=== PATIENT | female | born 1970 | race Caucasian/White ===

== ENCOUNTER 2018-06-20 03:14 | Inpatient (IN) ==
[2018-06-20] MEDS ORDERED: LORazepam 1 MG Tablet PO PRN (05:44)
--- NOTE | 2018-06-20 10:11 | P.HPPSY ---
Provisional Diagnosis Admission Date: June 20, 2018 05:10 [place] I.: 1. Unspecified psychosis Rule out primary psychotic illness Rule out mood disorder with psychotic features Rule out psychosis due to a general medical or neurological problem [place] II.: Deferred Competence Certification of Person's Competence To Provide Express and Informed Consent I have personally examined Arabella Dang, a person being served at [facility] on, June 20, 2018 1010. Express and informed consent means consent voluntarily given in writing, by a competent person, after sufficient explanation and disclosure of the subject matter involved to enable the person to make a knowing and willful decision without any element of force, fraud, deceit, duress, or other form of constraint or coercion. This person is 18 years of age or older, is not now known to be incompetent to consent to treatment with a guardian advocate, and does not have a health care surrogate or proxy currently making medical treatment decisions. I have found this person to be one of the following: [] Competent to provide express and informed consent, as defined above, for voluntary admission to this facility and is competent to provide express and informed consent for treatment. He/she has the consistent capacity to make well reasoned, willful, and knowing decisions concerning his or her medical or mental health treatment. The person fully and consistently understands the purpose of the admission for examination/placement and is fully capable of personally exercising all rights assured under [place] [X] Incompetent to provide express and informed consent to voluntary admission, and this is incompetent to provide express and informed consent to treatment. The person must be transferred to involuntary status and a petition for a guardian advocate filed with the Circuit Court. [] Refusing to provide express and informed consent to voluntary admission but is competent to provide express and informed consent for treatment. The person must be discharged or transferred to involuntary status. Form shall be completed within 24 hours of a person's arrival at the receiving facility and filed in the clinical record of each person: 1. Admitted on a voluntary basis 2. Permitted to provide express and informed consent to his/her own treatment 3. Allowed to transfer from involuntary to voluntary status 4. Prior to permitting a person to consent to his or her own treatment after having been previously found incompetent to consent to treatment. History of Present Illness Capacity: Lacks capacity Chief Complaint: Psychosis History of Present Illness: Ms. Dang is a 48-year-old female with no previously diagnosed psychiatric illness prior to the current episode who presents in transfer from [facility] under a Roach act. Reviewing documentation from outside hospital, it appears that the patient was brought into [facility] under an ex parte order initiated by her sister, Rosey. I have reviewed the text of this ex parte order , which alleges paranoia. Reviewing our electronic medical record, I see no previous psychiatric contact within our system. Patient seen and examined with nurse. Chart reviewed. Case discussed with nursing staff. On my exam, patient is seclusive to room. She is sarcastic and irritable. She is quite paranoid. She believes that people are monitoring our conversation and asks to speak in a more private setting, even though there is no one in the room but myself and the nurse. She denies AVH. Denies SI or HI saying "just the opposite. I am trying to stay alive." Affect is irritable and dysphoric. No reported depressive or hypomanic/manic symptoms. She rambles about recent treatment for UTI, pap smear and other medical tests. She reports that her feeling that she was being monitored started "a little over a year ago." No other delusional material. Remainder of the psychiatric ROS is negative. No acute physical complaints. Past psychiatric history: Patient is likely an unreliable historian. She says that she has seen a provider in the past at [facility]. Patient reports that she is prescribed Risperdal but does not take it. She reports that she has been psychiatrically hospitalized here in [place] but will not say where or when. She denies a history of suicide attempts or violence. Family history: The patient denies a history of serious mental illness or suicide. Chemical dependency history: The patient reports that she previously was a heavy drinker but has been sober for the last 2 years. Social history: The patient is originally from [place] but moved to [place] by way of [place]. She previously worked doing medical center manager. She is high school educated. She is and has 2 sons Hira and Kody. She also reports that she is presently in a partner relationship with a gentleman named Neville Whitten III. She denies any history. She does report a history of legal problems, namely failure to report an accident. No reported active legal issues. She denies any access to guns or firearms. She is a Anglican. No reported history of trauma. 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 Medications: Patient reports that she is nonadherent with psychotropic medications. She does take Prilosec, multivitamin and B12 supplement. Given the patient's degree of psychiatric impairment, I obtained collateral information from her sister, Rosey who completed the ex parte order at the number listed in her affidavit. Rosey reports that the patient has been experiencing increasing paranoia x 2 months with no known previous psychiatric history. Patient was visiting family in [place] and was found wandering. She was taken to a psychiatric hospital in [place] but was released by the marzipan maker. Since returning to [place], Rosey notes patient has grown increasingly paranoid. She believes that her phone is bugged and that people are listening to her on the TV. As noted above, the patient has no known previous psychiatric history. There is a family history of bipolar disorder and Rosey self as well as anxiety and the patient's father. Rosey does not believe that the patient is currently using drugs or alcohol and notes that she went to rehab for alcohol use issues 2 years ago. Rosey is willing to serve as health care surrogate. We discussed treatment plan including workup for first episode of psychosis. She will also get the name of the hospital where the patient was hospitalized in [place] so that we may obtain records. - Inpatient Certification I certify that the inpatient services were ordered in accordance with Medicare regulations governing the order. This includes certification that hospital inpatient services are reasonable and necessary and in the case of services not specified as inpatient-only under 42 CFR 419.22(n), that they are appropriately provided as inpatient services in accordance to with the 2-midnight benchmark under 43 CFR 412.3(e) I certify that inpatient psychiatric hospital services are medically necessary. Evaluation and treatment and/or diagnostic testing are expected to improve the patient's condition. The patient needs on a daily basis, active treatment furnished directly by or requiring the supervision of inpatient psychiatric facility personnel. Estimated Total Length of Stay (Days): 9 (7-9) Plans for Post Hospital Care: Not yet determined Review of Systems All other systems reviewed negative except as stated in HPI (Limitation: Psychosis) PMFSH - Travel History Recent Travel in the USA Within the Last 8 Weeks: No Recent Travel Out of the Country Within the Last 8 Weeks: No - Immunization History Tetanus Immunization: Unable to Assess Hx Influenza Vaccine This Season: Unable to Assess Quality Measures - Patient Strengths Patient's strengths (minimum of 2): In a monitored setting. Verbally fluent. Medications and Allergies Active Medications: Active Medications Acetaminophen (Tylenol) 650 mg PO Q4H PRN PRN Reason: PAIN 1-5 OR TEMP > 101 Al Hydrox/Mg Hydrox/Simethicone (Mag-Al Plus Susp Liq) 30 ml PO Q6H PRN PRN Reason: DYSPEPSIA Al Hydroxide/Mg Hydroxide (Milk Of Magnesia Liq) 30 ml PO Q24H PRN PRN Reason: CONSTIPATION Lorazepam (Ativan) 1 mg PO Q6H PRN PRN Reason: MODERATE TO SEVERE ANXIETY Lorazepam (Ativan Inj) 1 mg IM Q6H PRN PRN Reason: MODERATE TO SEVERE ANXIETY Nicotine (Habitrol 21 Mg Patch.24 Hr) 1 patch T-DERMAL DAILY LISY Patch Removal (Remove Old Patch) 1 each T-DERMAL HS LISY Risperidone (Risperdal) 1 mg PO BID LISY Allergies Allergy/AdvReac Type Severity Reaction Status Date / Time No Known Allergies Allergy Verified 06/20/18 05:16 Home Medications Medication Instructions Recorded Confirmed Type risperidone [Risperdal] 1 mg PO BID 06/20/18 06/20/18 History Results - Labs Labs: Labs from outside hospital reviewed: Tylenol level negative Alcohol level undetectable CMP reveals mild hyponatremia at 136. Renal and hepatic function are intact. Salicylate level undetectable. Urine drug screen negative. TSH 2.08. CBC reveals mild microcytic anemia with a hemoglobin of 10.2. White blood cell count and platelet count are within normal limits. Urinalysis reveals 6 white blood cells and large leukocyte esterase. Exam Vital signs: Vital Signs 06/20/18 05:26 Temperature 98 F Pulse Rate 76 Respiratory Rate 16 Blood Pressure 107/53 L Pulse Oximetry 97 Intake & Output 06/19/18 06/20/18 06/20/18 18:59 06:59 18:59 Weight 57.1 kg Other: Weight On Admission 57.1 kg Narrative: Physical exam completed by ED provider at outside hospital. On my examination today, the patient appears to be in no acute physical distress. No motor abnormalities noted. Labs and vital signs reviewed. Mental Status Examination Appearance: Disheveled Consciousness: Alert, Vigilant Orientation: Person, Place (At least) Motor Activity: Other (No motor abnormalities noted) Speech: Unremarkable Language: Adequate Fund of Knowledge: Adequate Attention and Concentration: Adequate Memory: Unremarkable (Grossly intact on clinical exam) Mood: Irritable, Other (Dysphoric) Affect: Irritable, Other (Restricted) Thought Process & Associations: Linear (Within delusions) Thought Content: Delusional Hallucination Type: None Delusion Type: Paranoid Suicidal Ideation: No Suicidal Plan: No Suicidal Intention: No Homicidal Ideation: No Homicidal Plan: No Homicidal Intention: No Insight: Poor Judgment: Poor Assessment and Plan - Assessment (1) Unspecified psychosis Code(s): F29 - Unspecified psychosis not due to a substance or known physiological condition Status: Acute - Plan Plan: 48-year-old female with psychiatric history as detailed above who presents in transfer from outside hospital under a Roach act. On my examination today, the patient remains quite paranoid and according to collateral information from the patient's sister has become increasingly paranoid over the last few months. Differential diagnosis would include later onset of a primary psychotic disorder disorder with psychotic features (although this seems less likely as there does not seem to be a significant mood component), or psychosis due to a general medical or neurological condition. I am concerned about the potential for significant self-care deficit as a consequence of the patient's psychosis. Patient requires psychiatric hospitalization at this time for safety, observation and stabilization. Admit inpatient. Involuntary status. I have completed first opinion. Consult for second opinion. Request healthcare surrogate and guardian advocate. Initiate first break psychosis workup: MRI brain and lab work including HIV, RPR , B12, thiamine/folate, TSH was wnl at outside hospital, ammonia, ESR, MAHNAZ. Check repeat UA and start patient on Macrobid as UA at outside hospital concerning for UTI. Obtain records from outside hospital. Hold off on initiating scheduled psychotropics pending initial workup and observation on the unit. Check EKG for QTc in anticipation that the patient will require an antipsychotic. Vitals every shift. Counselor to see. Disposition planning. Estimated length of stay: 7-9 days. Justification for Continued Inpatient Stay: See above Discharge Planning: Pending psychiatric stabilization. Request Healthcare Surrogate/Guardian Advocate?: Yes (1) Unspecified psychosis Qualifiers: Psychosis type: unspecified psychosis type Qualified Code(s): F29 - Unspecified psychosis not due to a substance or known physiological condition
--- NOTE | 2018-06-20 15:54 | P.CONPSY ---
Provisional Diagnosis Admission Date: June 20, 2018 05:10 [place] I.: 1. Unspecified psychosis Rule out primary psychotic illness Rule out mood disorder with psychotic features Rule out psychosis due to a general medical or neurological problem [place] II.: Deferred History of Present Illness Service: Psychiatry Consult date: 06/20/18 Requesting Physician: Yazan Olsen Reason for Consult: Second opinion Primary Care Provider: Debora Ivey History of Present Illness: Patient is a 48-year-old woman with an unclear past psychiatric history, was brought in under Roach act under expiratory due to increasing paranoia which patient had endorsed that her phone has been tapped and the patient listening to her television. Patient was found heavily on unit noted to be suspicious and guarded toward telegraphic typewriter operator and nurse. Patient states that she is here in the hospital because there was a well check that was sent for her from her sister and does not understand why she is here in the hospital. Patient states that she has been feeling depressed but denying any suicide ideations. Patient gives an unclear disorganized account of her past psychiatric history, and I was able to elaborate somewhat on her paranoid stating that her phone had been compromised as well as inside her vehicle that they are listening to her. When asked about whom she believes this interfering with her electronic devices set her vehicle she did not elaborate. Patient states that she does not recall having been seen by a psychiatrist this morning and did not recall having taking her antibiotics which was provided for her by the nurse earlier today. Patient noted to be somewhat disorganized. Review of Systems All other systems reviewed negative except as stated in HPI PMFSH - History History Provided By: Patient, Medical Record - Travel History Recent Travel in the USA Within the Last 8 Weeks: No Recent Travel Out of the Country Within the Last 8 Weeks: No - Immunization History Tetanus Immunization: Unable to Assess Hx Influenza Vaccine This Season: Unable to Assess Medications and Allergies Active Medications: Active Medications Acetaminophen (Tylenol) 650 mg PO Q4H PRN PRN Reason: PAIN 1-5 OR TEMP > 101 Al Hydrox/Mg Hydrox/Simethicone (Mag-Al Plus Susp Liq) 30 ml PO Q6H PRN PRN Reason: DYSPEPSIA Al Hydroxide/Mg Hydroxide (Milk Of Magnesia Liq) 30 ml PO Q24H PRN PRN Reason: CONSTIPATION Nicotine (Habitrol 21 Mg Patch.24 Hr) 1 patch T-DERMAL DAILY LISY Nitrofurantoin Macrocrystals (Macrobid) 100 mg PO BIDPC LISY Patch Removal (Remove Old Patch) 1 each T-DERMAL HS LISY Allergies Allergy/AdvReac Type Severity Reaction Status Date / Time No Known Allergies Allergy Verified 06/20/18 05:16 Home Medications Medication Instructions Recorded Confirmed Type risperidone [Risperdal] 1 mg PO BID 06/20/18 06/20/18 History Exam Vital signs: Vital Signs 06/20/18 05:26 Temperature 98 F Pulse Rate 76 Respiratory Rate 16 Blood Pressure 107/53 L Pulse Oximetry 97 Intake & Output 06/19/18 06/20/18 06/20/18 18:59 06:59 18:59 Weight 57.1 kg Other: Weight On Admission 57.1 kg - Constitutional no acute distress, cooperative (superficially) Mental Status Examination Appearance: Disheveled Consciousness: Alert, Vigilant Orientation: Person, Place (At least) Motor Activity: Other (No motor abnormalities noted) Speech: Unremarkable Language: Adequate Fund of Knowledge: Adequate Attention and Concentration: Adequate Memory: Unremarkable (Grossly intact on clinical exam) Mood: Irritable Affect: Irritable, Sad Thought Process & Associations: Linear (Within delusions), Tangential Thought Content: Delusional Hallucination Type: None Delusion Type: Paranoid Suicidal Ideation: No Suicidal Plan: No Suicidal Intention: No Homicidal Ideation: No Homicidal Plan: No Homicidal Intention: No Insight: Poor Judgment: Poor Assessment and Plan - Assessment (1) Unspecified psychosis Code(s): F29 - Unspecified psychosis not due to a substance or known physiological condition Status: Acute - Plan Plan: I have seen and examined this patient, reviewed the documentation, and I agree and concur with Dr. Olsen assessment and plan. I have completed second opinion for the petition for involuntary hospitalization. Consult appreciated. Justification for Continued Inpatient Stay: At risk for further decompensation if at lower level of care. Request Healthcare Surrogate/Guardian Advocate?: Yes (1) Unspecified psychosis Qualifiers: Psychosis type: unspecified psychosis type Qualified Code(s): F29 - Unspecified psychosis not due to a substance or known physiological condition
[2018-06-20] MEDS: Nitrofurantoin Monohydrate-Macrocrystal 100 MG Capsule PO SCH (17:50)
[2018-06-20] MEDS: Acetaminophen 325 MG Tablet PO PRN (21:50)
[2018-06-20 22:24] LABS: Bacteria,Urine Rare /hpf; Bilirubin,Urine Negative (Negative); Clarity,Urine Clear (Clear); Color,Urine Straw (Yellw/Straw); Glucose,Urine (UA) Negative (Negative); Leukocyte Esterase,Urine Trace (Negative); Nitrite,Urine Negative (Negative); Specific Gravity,Urine 1.003 (1.002-1.035)
[2018-06-21] MEDS: Nitrofurantoin Monohydrate-Macrocrystal 100 MG Capsule PO SCH ×2 (08:19→18:10)
[2018-06-21 08:23] LABS: Anion Gap 7 meq/L (5-15); Blood Urea Nitrogen 9 mg/dL (7-18); Calcium 8.4 mg/dL (8.5-10.1); Carbon Dioxide 28.4 meq/L (21.0-32.0); Chloride 109 meq/L (98-107); Cholesterol 146 mg/dL (120-200); Glomerular Filtration Rate Greater Than 89 mL/min (>89); Glucose,Random 86 mg/dL (74-106); Potassium 4.2 meq/L (3.5-5.1); Sodium 144 meq/L (136-145)
[2018-06-21 08:48] LABS: Chol/HDL Ratio 2.15 Ratio; HDL Cholesterol 67.7 mg/dL (40.0-60.0); LDL Cholesterol,Calculated 64 mg/dL (0-99); Triglycerides 70 mg/dL (42-150); Vitamin B12 1130 pg/mL (193-986)
--- NOTE | 2018-06-21 14:41 | P.PNPSY ---
Subjective Chief Complaint: Psychosis Remarks: Reviewed electronic medical records and discussed case with staff. Follow-up was conducted in patient's room with nurse present. Patient found lying in her bed. She reports that she is tired due to having trouble falling and staying asleep. She reports that her appetite's been good. She claims that she has had a gastric bypass is not receiving her multivitamins are look into that. Staff reports that she has been extremely paranoid and questions everything. I do note this upon her follow-up. She is suspicious of what is happening to her purse as well as his prescriptions very goal-directed towards this. Mental Status Examination Appearance: Disheveled Consciousness: Alert, Vigilant Orientation: Person, Place (At least) Motor Activity: Other (No motor abnormalities noted) Speech: Unremarkable Language: Adequate Fund of Knowledge: Adequate Attention and Concentration: Adequate Memory: Unremarkable (Grossly intact on clinical exam) Mood: Irritable Affect: Irritable, Sad Thought Process & Associations: Linear (Within delusions), Tangential Thought Content: Delusional Hallucination Type: None Delusion Type: Paranoid Suicidal Ideation: No Suicidal Plan: No Suicidal Intention: No Homicidal Ideation: No Homicidal Plan: No Homicidal Intention: No Insight: Poor Judgment: Poor Assessment and Plan - Plan Plan: Continue with current treatment plan. I have added a multivitamin and B12 due to the patient's reports of previous gastric bypass. Justification for Continued Inpatient Stay: Moving this patient to a less restrictive environment would likely result in decompensation. Patient remains suspicious and paranoid. Seclusive to room. Request Healthcare Surrogate/Guardian Advocate?: Yes
--- NOTE | 2018-06-21 15:43 | MR ---
EXAM DATE: 06/21/2018 3:37 PM EDT AGE/SEX: 48 years / Female INDICATIONS: . Psychosis. CLINICAL DATA: This is the patient's initial encounter. Patient reports that signs and symptoms have been present for 1 day and indicates a pain score of 0/10. MEDICAL/SURGICAL HISTORY: None. Tubal ligation. Tonsillectomy. Gastric bypass. COMPARISON: No prior exams available for comparison. TECHNIQUE: Multiplanar, multisequence examination of the brain was performed without contrast. FINDINGS: MRI of the brain is performed in sagittal, axial and coronal planes. The craniocervical junction and midline structures are unremarkable. Diffusion weighted images demonstrate no abnormality. No acute c ortical infarction, acute hemorrhage, mass effect or midline shift is seen. Posterior fossa structure s are unremarkable. CONCLUSION: No evidence of acute intracranial pathology. No masses are identified. Electronically signed by: Yazan Persaud MD 06/21/2018 3:42 PM EDT
[2018-06-21 15:50] LABS: Hemoglobin A1c 5.7 % (4.3-6.0)
--- NOTE | 2018-06-21 16:21 | ECG ---
Date Performed: 06/21/2018 Time Performed: 11:11:16 PTAGE: 48 years EKG: Sinus rhythm NORMAL ECG NO PREVIOUS TRACING DOCTOR: Yazan Gilmore Interpretating Date/Time 06/21/2018 16:17:55
[2018-06-22] MEDS: Nitrofurantoin Monohydrate-Macrocrystal 100 MG Capsule PO SCH ×2 (08:15→17:09)
[2018-06-22 15:33] LABS: Anti-Nuclear Antibody Screen Neg (Neg)
--- NOTE | 2018-06-22 16:43 | P.PNPSY ---
Subjective Chief Complaint: Psychosis Remarks: Reviewed electronic medical records and discussed case with staff. Follow-up was conducted in the hallway. Patient continues to be extremely paranoid and irritable. Staff reports that she has been fault finding. Patient was assigned a surrogate and court on and I have reached out to her and obtained consent via phone to reestablish the patient on her risperidone. I have ordered 1 mg twice a day. She does admit that she took this when living in [place] reports she has been off of it for approximately a month now. When asked why she stopped she reported "because I left [place]". Patient is extremely demanding stating that the healthcare surrogate, she wants to know the name and phone number of the tool checker, she wants this provider's name and phone number. Mental Status Examination Appearance: Disheveled Consciousness: Alert, Vigilant Orientation: Person, Place (At least) Motor Activity: Other (No motor abnormalities noted) Speech: Unremarkable Language: Adequate Fund of Knowledge: Adequate Attention and Concentration: Adequate Memory: Unremarkable (Grossly intact on clinical exam) Mood: Irritable Affect: Irritable, Sad Thought Process & Associations: Linear (Within delusions), Tangential Thought Content: Delusional Hallucination Type: None Delusion Type: Paranoid Suicidal Ideation: No Suicidal Plan: No Suicidal Intention: No Homicidal Ideation: No Homicidal Plan: No Homicidal Intention: No Insight: Poor Judgment: Poor Assessment and Plan - Assessment (1) Unspecified psychosis Code(s): F29 - Unspecified psychosis not due to a substance or known physiological condition Status: Acute - Plan Plan: Continue with current treatment plan as ordered. I have added risperidone 1 mg twice a day which is the patient's reported maintenance psychotropic as well as Benadryl as needed for insomnia. Justification for Continued Inpatient Stay: Moving this patient to a less restrictive environment would likely result in decompensation. She continues to be extremely paranoid and suspicious. Request Healthcare Surrogate/Guardian Advocate?: Yes (1) Unspecified psychosis Qualifiers: Psychosis type: unspecified psychosis type Qualified Code(s): F29 - Unspecified psychosis not due to a substance or known physiological condition
[2018-06-22] MEDS: Acetaminophen 325 MG Tablet PO PRN (17:09)
[2018-06-23] MEDS: Nitrofurantoin Monohydrate-Macrocrystal 100 MG Capsule PO SCH ×2 (09:25→17:55)
--- NOTE | 2018-06-23 13:46 | P.PNPSY ---
Subjective Chief Complaint: Psychosis Remarks: Patient was seen and case discussed with nursing. Patient has poor insight into her admission. She remains with paranoid delusions concerning her scientology and her phone. Thought process is quite disorganized. She is selective with her medications. She has not had any outbursts. Mental Status Examination Appearance: Disheveled Consciousness: Alert, Vigilant Orientation: Person, Place (At least) Motor Activity: Other (No motor abnormalities noted) Speech: Unremarkable Language: Adequate Fund of Knowledge: Adequate Attention and Concentration: Adequate Memory: Unremarkable (Grossly intact on clinical exam) Mood: Irritable Affect: Irritable, Sad Thought Process & Associations: Tangential Thought Content: Delusional Hallucination Type: None Delusion Type: Paranoid Suicidal Ideation: No Suicidal Plan: No Suicidal Intention: No Homicidal Ideation: No Homicidal Plan: No Homicidal Intention: No Insight: Poor Judgment: Poor Assessment and Plan - Assessment (1) Unspecified psychosis Code(s): F29 - Unspecified psychosis not due to a substance or known physiological condition Status: Acute - Plan Plan: Continue current treatment plan Justification for Continued Inpatient Stay: Patient would decompensate in a less restrictive setting Request Healthcare Surrogate/Guardian Advocate?: Yes (1) Unspecified psychosis Qualifiers: Psychosis type: unspecified psychosis type Qualified Code(s): F29 - Unspecified psychosis not due to a substance or known physiological condition
[2018-06-24] MEDS: Nitrofurantoin Monohydrate-Macrocrystal 100 MG Capsule PO SCH ×2 (09:44→17:50)
--- NOTE | 2018-06-24 10:44 | P.PNPSY ---
Subjective Chief Complaint: Psychosis Remarks: Patient was seen and case discussed with nursing. Patient is perseverative on discharge. Affect is quite irritable today. She has poor insight into her history and reasons for admission. She did admit to taking that her Facebook and phone are still hacked. Seclusive to her room. Possibly internally stimulated Mental Status Examination Appearance: Disheveled Consciousness: Alert, Vigilant Orientation: Person, Place (At least) Motor Activity: Other (No motor abnormalities noted) Speech: Unremarkable Language: Adequate Fund of Knowledge: Adequate Attention and Concentration: Adequate Memory: Unremarkable (Grossly intact on clinical exam) Mood: Irritable Affect: Irritable, Sad Thought Process & Associations: Tangential Thought Content: Preoccupations Hallucination Type: None Delusion Type: Paranoid Suicidal Ideation: No Suicidal Plan: No Suicidal Intention: No Homicidal Ideation: No Homicidal Plan: No Homicidal Intention: No Insight: Poor Judgment: Poor Assessment and Plan - Assessment (1) Unspecified psychosis Code(s): F29 - Unspecified psychosis not due to a substance or known physiological condition Status: Acute - Plan Plan: Continue current treatment plan Justification for Continued Inpatient Stay: Patient would decompensate in a less restrictive setting Request Healthcare Surrogate/Guardian Advocate?: Yes (1) Unspecified psychosis Qualifiers: Psychosis type: unspecified psychosis type Qualified Code(s): F29 - Unspecified psychosis not due to a substance or known physiological condition
[2018-06-24] MEDS: Acetaminophen 325 MG Tablet PO PRN (17:49)
[2018-06-25] MEDS: Nitrofurantoin Monohydrate-Macrocrystal 100 MG Capsule PO SCH ×2 (09:35→17:28)
--- NOTE | 2018-06-25 12:57 | P.PNPSY ---
Subjective Chief Complaint: Psychosis Remarks: Reviewed electronic medical records and discussed case with staff. Follow-up was conducted in patient's room. Her nurse reports that they attempted to move her to the 2600 unit yesterday however she quickly began acting out and had to be returned to 2700. She reports that she has been having difficulty sleeping but that her appetite is been good. She is somewhat somatic complaining of pain in her chest and shoulder she states that it is a "burning". She remains paranoid and suspicious asking, "I got an MRI, is not that a picture, I would think I should get a copy of it to see". Mental Status Examination Appearance: Disheveled Consciousness: Alert, Vigilant Orientation: Person, Place (At least) Motor Activity: Other (No motor abnormalities noted) Speech: Unremarkable Language: Adequate Fund of Knowledge: Adequate Attention and Concentration: Adequate Memory: Unremarkable (Grossly intact on clinical exam) Mood: Irritable Affect: Irritable, Sad Thought Process & Associations: Tangential Thought Content: Preoccupations Hallucination Type: None Delusion Type: Paranoid Suicidal Ideation: No Suicidal Plan: No Suicidal Intention: No Homicidal Ideation: No Homicidal Plan: No Homicidal Intention: No Insight: Poor Judgment: Poor Assessment and Plan - Assessment (1) Unspecified psychosis Code(s): F29 - Unspecified psychosis not due to a substance or known physiological condition Status: Acute - Plan Plan: Patient will be reevaluated tomorrow by the attending psychiatrist. Continue with current treatment plan. Justification for Continued Inpatient Stay: Moving this patient to a less restrictive environment would likely result in decompensation. Request Healthcare Surrogate/Guardian Advocate?: Yes (1) Unspecified psychosis Qualifiers: Psychosis type: unspecified psychosis type Qualified Code(s): F29 - Unspecified psychosis not due to a substance or known physiological condition
[2018-06-25] MEDS: Acetaminophen 325 MG Tablet PO PRN ×2 (16:57→22:25)
[2018-06-26] MEDS: Acetaminophen 325 MG Tablet PO PRN ×4 (03:11→20:48)
[2018-06-26] MEDS: Aluminum/Magnesium/Simethacone Susp 30 ML UDC PO PRN ×2 (03:14→09:33)
[2018-06-26] MEDS: Nitrofurantoin Monohydrate-Macrocrystal 100 MG Capsule PO SCH (08:20)
--- NOTE | 2018-06-26 09:59 | P.PNPSY ---
Subjective Chief Complaint: Psychosis Remarks: Patient seen and examined with nurse. Chart reviewed. Case discussed with nursing staff who reports that the patient is irritable and demanding at times with a degree of somatic preoccupation. At patient preference, interview conducted in the hallway today. On my examination today, the patient complains of some dyspepsia and requests to be placed back on her proton pump inhibitor, which I have ordered. She also complains of chronic left shoulder and back pain. She remains paranoid. She believes that her electronic devices have been infiltrated and rambles for a time about [employer] in a manner that is difficult to follow. Thought process does remain a little bit loose. She denies any SI or HI. Denies any side effects from medications. No physical complaints. Vital Signs Temp Pulse Resp BP Pulse Ox 06/26/18 05:44 98.2 F 76 18 108/64 98 06/25/18 17:29 98.1 F 79 20 148/73 H 99 Laboratory Tests 06/21/18 06/21/18 06/21/18 07:30 07:30 07:30 ESR 10 Ammonia 20 Thiamine Vitamin B12 RBC Folate Beta HCG, Qual MAHNAZ Screen RPR HIV 1&2 Ab/P24 Ag 4thGn Nonreactive 06/21/18 06/21/18 06/21/18 07:30 07:30 07:30 ESR Ammonia Thiamine 169 Vitamin B12 1130 H RBC Folate 916 Beta HCG, Qual 3.7 MAHNAZ Screen Neg RPR Nonreactive HIV 1&2 Ab/P24 Ag 4thGn Head MRI 06/21/18 00:00 CONCLUSION: No evidence of acute intracranial pathology. No masses are identified. Labs reviewed. Psychosis workup unrevealing for organic cause of patient's symptoms. Review of Systems All other systems reviewed negative except as stated in HPI (Limitation: Psychosis) Mental Status Examination Appearance: Disheveled Consciousness: Alert, Vigilant Orientation: Person, Place (At least) Motor Activity: Normal gait, Other (No abnormal motor movements noted) Speech: Unremarkable Language: Adequate Fund of Knowledge: Adequate Attention and Concentration: Adequate Memory: Unremarkable (Grossly intact on clinical exam) Mood: Irritable, Other (Somewhat dysphoric) Affect: Other (Restricted) Thought Process & Associations: Tangential Thought Content: Preoccupations Hallucination Type: None Delusion Type: Paranoid Suicidal Ideation: No Suicidal Plan: No Suicidal Intention: No Homicidal Ideation: No Homicidal Plan: No Homicidal Intention: No Insight: Poor Judgment: Poor Assessment and Plan - Assessment (1) Unspecified psychosis Code(s): F29 - Unspecified psychosis not due to a substance or known physiological condition Status: Acute - Plan Plan: Titrate Risperdal to 2 mg twice daily to target psychosis. Add Protonix. Discontinue Macrobid as repeat UA was not suggestive of UTI and patient has completed course of treatment with this antibiotic in any event. Discontinue B12 supplement as patient's B12 level is in fact high. Continue to monitor on the inpatient unit. Continue other medications and care as ordered. Justification for Continued Inpatient Stay: Medication changes. Impairment in reality construction. High risk for decompensation in less restrictive environment. Discharge Planning: Pending psychiatric stabilization. Request Healthcare Surrogate/Guardian Advocate?: Yes (1) Unspecified psychosis Qualifiers: Psychosis type: unspecified psychosis type Qualified Code(s): F29 - Unspecified psychosis not due to a substance or known physiological condition
[2018-06-27] MEDS: Acetaminophen 325 MG Tablet PO PRN ×2 (08:34→20:04)
[2018-06-27 14:37] VITALS: RESP 18
--- NOTE | 2018-06-27 14:42 | P.PNPSY ---
Subjective Chief Complaint: Psychosis Remarks: Patient seen and examined with counselor and nurse. Chart reviewed. Case discussed with nursing staff who reports patient remains paranoid, suspicious and confrontational. Case discussed with counselor who has spoken with patient' s family who verbalized concern that the patient is experiencing ongoing paranoia. On my examination today, the patient remains paranoid. The focus of her concern today is the notice of [place] hearing, scheduled for tomorrow. She also remains concerned that she is being monitored through electronic devices such as the telephone. She denies any SI or HI. Denies any AVH. Denies any side effects from medications besides mild tiredness. No physical complaints. Vital Signs Temp Pulse Resp BP Pulse Ox 06/27/18 14:36 98.3 F 72 18 103/58 L 98 06/27/18 05:39 98.7 F 81 16 105/55 L 97 06/26/18 17:38 98.5 F 79 18 90/58 L 98 Labs reviewed. No new labs. Review of Systems All other systems reviewed negative except as stated in HPI (Limitation: Psychosis) Mental Status Examination Appearance: Disheveled Consciousness: Alert, Vigilant Orientation: Person, Place (At least) Motor Activity: Normal gait, Other (No motor abnormalities noted) Speech: Unremarkable Language: Adequate Fund of Knowledge: Adequate Attention and Concentration: Adequate Memory: Unremarkable (Grossly intact on clinical exam) Mood: Irritable, Other (Remains dysphoric) Affect: Blunt Thought Process & Associations: Circumstantial Thought Content: Preoccupations Hallucination Type: None Delusion Type: Paranoid Suicidal Ideation: No Suicidal Plan: No Suicidal Intention: No Homicidal Ideation: No Homicidal Plan: No Homicidal Intention: No Insight: Poor Judgment: Poor Assessment and Plan - Assessment (1) Unspecified psychosis Code(s): F29 - Unspecified psychosis not due to a substance or known physiological condition Status: Acute - Plan Plan: Lack of significant response to Risperdal so far. Although there has been no indication of cheeking, I will change patient's Risperdal tablets to Risperdal M -tabs 2 mg twice a day in case there is some degree of covert medication nonadherence. Continue to monitor on the inpatient unit. Continue other medications and care as ordered. Justification for Continued Inpatient Stay: Impairment in reality construction. Medication changes. High risk for decompensation in less restrictive environment. Discharge Planning: Pending psychiatric stabilization. [place] tomorrow. Request Healthcare Surrogate/Guardian Advocate?: Yes (1) Unspecified psychosis Qualifiers: Psychosis type: unspecified psychosis type Qualified Code(s): F29 - Unspecified psychosis not due to a substance or known physiological condition
[2018-06-27] MEDS: risperiDONE 2 MG ODT PO SCH (20:15)
[2018-06-28 05:47] VITALS: BP 117/54; PULSE 80; TEMP 97.3; O2SAT 99
[2018-06-28] MEDS: Acetaminophen 325 MG Tablet PO PRN (08:01)
[2018-06-28] MEDS: risperiDONE 2 MG ODT PO SCH (08:01)
--- NOTE | 2018-06-28 09:36 | P.DSPSY ---
Psychiatry Discharge Summary Inpatient Psychiatric care?: Yes Advance Directives: Unknown Reason for Unknown:: Other Other Reason for Unknown: pt refuses to cooperate Mental Health Advance Directive: Unknown Health Care Proxy: Unknown - Admission Admission Date: June 20, 2018 05:10 - Admission Diagnosis (1) Unspecified psychosis Code(s): F29 - Unspecified psychosis not due to a substance or known physiological condition Brief History: Ms. Dang is a 48-year-old female with no previously diagnosed psychiatric illness prior to the current episode who presents in transfer from [facility] under a [place] act. Reviewing documentation from outside hospital, it appears that the patient was brought into [facility] under an ex parte order initiated by her sister, Rosey. I have reviewed the text of this ex parte order , which alleges paranoia. Reviewing our electronic medical record, I see no previous psychiatric contact within our system. Patient seen and examined with nurse. Chart reviewed. Case discussed with nursing staff. On my exam, patient is seclusive to room. She is sarcastic and irritable. She is quite paranoid. She believes that people are monitoring our conversation and asks to speak in a more private setting, even though there is no one in the room but myself and the nurse. She denies AVH. Denies SI or HI saying "just the opposite. I am trying to stay alive." Affect is irritable and dysphoric. No reported depressive or hypomanic/manic symptoms. She rambles about recent treatment for UTI, pap smear and other medical tests. She reports that her feeling that she was being monitored started "a little over a year ago." No other delusional material. Remainder of the psychiatric ROS is negative. No acute physical complaints. Past psychiatric history: Patient is likely an unreliable historian. She says that she has seen a provider in the past at [facility]. Patient reports that she is prescribed Risperdal but does not take it. She reports that she has been psychiatrically hospitalized here in [place] but will not say where or when. She denies a history of suicide attempts or violence. Family history: The patient denies a history of serious mental illness or suicide. Chemical dependency history: The patient reports that she previously was a heavy drinker but has been sober for the last 2 years. Social history: The patient is originally from [place] but moved to [place] by way of [place]. She previously worked doing [employer]. She is high school educated. She is and has 2 sons Hira and Kody. She also reports that she is presently in a partner relationship with a gentleman named Neville Whitten III. She denies any history. She does report a history of legal problems, namely failure to report an accident. No reported active legal issues. She denies any access to guns or firearms. She is a [employer]. No reported history of trauma. 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 Medications: Patient reports that she is nonadherent with psychotropic medications. She does take Prilosec, multivitamin and B12 supplement. Given the patient's degree of psychiatric impairment, I obtained collateral information from her sister, Rosey who completed the ex parte order at the number listed in her affidavit. Rosey reports that the patient has been experiencing increasing paranoia x 2 months with no known previous psychiatric history. Patient was visiting family in [place] and was found wandering. She was taken to a psychiatric hospital in [place] but was released by the photo tube assembler. Since returning to [place], Rosey notes patient has grown increasingly paranoid. She believes that her phone is bugged and that people are listening to her on the TV. As noted above, the patient has no known previous psychiatric history. There is a family history of bipolar disorder and Rosey self as well as anxiety and the patient's father. Rosey does not believe that the patient is currently using drugs or alcohol and notes that she went to rehab for alcohol use issues 2 years ago. Rosey is willing to serve as health care surrogate. We discussed treatment plan including workup for first episode of psychosis. She will also get the name of the hospital where the patient was hospitalized in [place] so that we may obtain records. Tobacco Use In Past 30 Days: No How Often Do You Have a Drink Containing Alcohol: Never (History of alcohol use disorder with 2 years' sobriety.) Hospital Course: Patient was admitted to a locked, inpatient psychiatric unit. Appropriate precautions were in place throughout patient's hospital stay. Patient was seen and examined on the unit by psychiatry and also visited by counselor. A first break psychosis workup was undertaken but was unrevealing for organic causes of patient's psychosis. Psychotropic medications were adjusted. There was no evidence of any suicidality or homicidality on the inpatient unit. Patient's case was presented to the [place] and the photo tube assembler has ordered the patient' s discharge today at her request. Patient's sister and [id number] were present in court today arguing in favor of additional inpatient stabilization. Patient presents with ongoing paranoia but no suicidal or homicidal ideation. No reported side effects from medications. Patient would benefit from additional inpatient stabilization but is requesting discharge today. I must discharge the patient as per court order and will discharge her AGAINST MEDICAL ADVICE. Psychiatric follow-up as arranged by counselor. Patient is also to follow up with primary care. Patient to return to psychiatric emergency room for any concerning symptoms as part of a general safety plan. - Discharge Discharge Date: 06/28/18 - Discharge Diagnosis (1) Unspecified psychosis Code(s): F29 - Unspecified psychosis not due to a substance or known physiological condition Status: Acute Discharge Disposition: Home - Discharge Instructions Discharge Diet: Regular Diet Activities You Can Perform: Weight Bearing As Tolerat - Discharge Time <= 30 minutes Mental Status Examination Appearance: Appropriate Consciousness: Alert, Vigilant Orientation: Person, Place (At least) Motor Activity: Normal gait, Other (No abnormal motor movements noted.) Speech: Unremarkable Language: Adequate Fund of Knowledge: Adequate Attention and Concentration: Adequate Memory: Unremarkable (Grossly intact on clinical exam) Mood: Other (Mildly dysphoric) Affect: Blunt Thought Process & Associations: Intact Thought Content: Delusional Hallucination Type: None Delusion Type: Paranoid Suicidal Ideation: No Suicidal Plan: No Suicidal Intention: No Homicidal Ideation: No Homicidal Plan: No Homicidal Intention: No Insight: Poor Judgment: Poor Discharge/Advance Care Plan - Results Vital Signs: Last Vital Signs Temp 97.3 F L 06/28/18 05:45 Pulse 80 06/28/18 05:45 Resp 18 06/28/18 05:45 BP 117/54 L 06/28/18 05:45 Pulse Ox 99 06/28/18 05:45 Lab Results: Laboratory Results Hemoglobin A1c 5.7 % (4.3-6.0) 06/21/18 07:30 Triglycerides 70 mg/dL (42-150) 06/21/18 07:30 Cholesterol 146 mg/dL (120-200) 06/21/18 07:30 LDL Cholesterol, Calc 64 mg/dL (0-99) 06/21/18 07:30 HDL Cholesterol 67.7 mg/dL (40.0-60.0) H 06/21/18 07:30 Urine Culture Comments Culture not ind 06/20/18 15:15 Summary of Procedures: None done. Imaging: ITS Impressions Head MRI 06/21/18 00:00 CONCLUSION: No evidence of acute intracranial pathology. No masses are identified. Pending Results: None - Medications Number of antipsychotic medications at discharge: 1 - Discharge Care Plan Goals to Promote Your Health: * To prevent worsening of your condition and complications * To maintain your health at the optimal level Directions to Meet Your Goals: Take your medications as prescribed Follow your dietary instruction Follow activity as directed Keep your appointments as scheduled Take your immunizations and boosters as scheduled If your symptoms worsen call your PCP, if no PCP go to Urgent Care Center or Emergency Room For 15/05 questions related to your inpatient stay or results of tests pending at discharge, please contact Dr. Yazan Olsen MD at Smoking is Dangerous to Your Health. Avoid second hand smoking (1) Unspecified psychosis Qualifiers: Psychosis type: unspecified psychosis type Qualified Code(s): F29 - Unspecified psychosis not due to a substance or known physiological condition (1) Unspecified psychosis Qualifiers: Psychosis type: unspecified psychosis type Qualified Code(s): F29 - Unspecified psychosis not due to a substance or known physiological condition
== END 2018-06-28 11:15 | disposition home or self-care (01) ==
LOC: H270 05:10 → H260 06-24 12:23 → H270 06-24 14:43
PROVIDERS: ADMIT Psychiatry & Neurology Psychiatry; ATTEND Psychiatry & Neurology Psychiatry